=== PATIENT | female | born 1995 | race Asian ===

== ENCOUNTER 2019-05-13 11:07 | Emergency (ER) | payer OTHER ==
[2019-05-13] MEDS ORDERED: Lidocaine 1% w/Epinephrine 1:100K 20 ML VIAL ONE (12:20)
[2019-05-13] MEDS ORDERED: Bacitracin 1 PK ONE (12:54)
== END 2019-05-13 13:04 | disposition home or self-care (01) ==
LOC: ERS 11:07
DX: S61.213A Laceration without foreign body of left middle finger without damage to nail, initial encounter (principal); W45.8XXA Other foreign body or object entering through skin, initial encounter
CPT/HCPCS: 12001; J2001

== ENCOUNTER 2019-05-21 14:24 | Emergency (ER) | payer OTHER | END 2019-05-21 14:45 | disposition home or self-care (01) | LOC: ERS 14:24 | DX: S61.213D Laceration without foreign body of left middle finger without damage to nail, subsequent encounter (principal) ==

== ENCOUNTER 2020-10-22 20:48 | Emergency (ER) | payer BC, OTHER ==
[2020-10-22] MEDS ORDERED: Dexamethasone 4 mg/ml Vial ONE (22:18)
--- NOTE | 2020-10-22 22:25 | RAD ---
EXAM: CHEST ONE VIEW HISTORY: Worsening cough and shortness of breath. Covid positive. COMPARISON: None FINDINGS: The cardiac silhouette and pulmonary vasculature are within normal limits. There are scattered increa sed interstitial and patchy airspace opacities seen within the lungs bilaterally greater at each lung base suggestive of viral pneumonitis such as Covid 19. The osseous structures are intact. IMPRESSION: Covid pneumonia.
[2020-10-22] MEDS ORDERED: Albuterol 200 PUFF (6.7GM INHALER) ONE (22:39)
== END 2020-10-22 22:48 | disposition home or self-care (01) ==
LOC: ERS 20:48
DX: U07.1 COVID-19 (principal); J12.82 Pneumonia due to coronavirus disease 2019
CPT/HCPCS: 71045; J1100